=== PATIENT | female | born 1980 | race Caucasian/White ===

== ENCOUNTER 2017-07-11 06:33 | Day surgery (SDC) | payer BC ==
[2017-07-11] VITALS (8 sets, daily range): BP systolic 111–124; BP diastolic 51–89
[~2017-07-11] VITALS: Ht 170.2 cm; Wt 71.2 kg
[~2017-07-11 06:33] MED LIST: ALBU17IN INH; ATIV1TAB10 PO
[2017-07-11] MEDS ORDERED: LR 1,000 ML IV SCH ×2 (06:45→10:45)
[2017-07-11 07:04] LABS: MEAN CORPUSCULAR HEMOGLOBIN 31.4 pg (27.0-33.0); MEAN CORPUSCULAR VOLUME 89.7 fl (80.0-96.0); RED CELL DISTRIBUTION WIDTH 11.9 % (11.5-14.5); WHITE BLOOD COUNT 4.7 K/mm3 (4.0-10.0)
[2017-07-11] MEDS ORDERED: EMER1PAK30 PO (07:20)
[2017-07-11] MEDS ORDERED: ZYRT10CA PO (07:20)
[2017-07-11 07:34] LABS: CONTROL LINE UCG INT CTR LINE PRESENT
[2017-07-11] MEDS ORDERED: MIDAZOLAM INJ 2 MG/2 ML VIAL (J2250) As Ordered ONE (09:05)
[2017-07-11] MEDS ORDERED: fentaNYL 100 MCG/2 ML INJECTION (J3010) As Ordered ONE (09:05)
[2017-07-11] MEDS ORDERED: NEOSTIGMINE 1MG/ML 5 ML SYRINGE (J2710) As Ordered ONE (09:06)
[2017-07-11] MEDS ORDERED: KETOROLAC 60 MG/2 ML VIAL (J1885) As Ordered ONE (09:06)
[2017-07-11] MEDS ORDERED: ONDANSETRON 4MG/2ML VIAL (J2405) As Ordered ONE (09:06)
[2017-07-11] MEDS ORDERED: LIDOCAINE 2% INJ 100 MG/5 ML SDV (FOR ANES.) As Ordered ONE (09:06)
[2017-07-11] MEDS ORDERED: GLYCOPYRROLATE INJ 0.2 MG/ML 2 ML VIAL As Ordered ONE (09:06)
[2017-07-11] MEDS ORDERED: PROPOFOL 200 MG/20 ML VIAL As Ordered ONE (09:06)
[2017-07-11] MEDS ORDERED: dexameTHASONE 4 MG/ML 1ML VIAL (J1100) As Ordered ONE (09:06)
[2017-07-11] MEDS ORDERED: HYDROmorphone HCL 2 MG/ML 1ML VIAL (J1170) As Ordered ONE (09:07)
[2017-07-11] MEDS ORDERED: MORPHINE 10 MG/ML 1ML VIAL As Ordered ONE (10:31)
[2017-07-11] MEDS ORDERED: METOCLOPRAMIDE INJ 10MG/2ML VIAL (J2765) As Ordered ONE (10:31)
[2017-07-11] MEDS ORDERED: MORPHINE 1MG/ML IN 0.9% NACL 100ML IV BAG As Ordered ONE (10:35)
[2017-07-11] MEDS: MORPHINE 2 MG/ML 1ML SYRINGE IV PRN ×3 (10:38→10:49)
[2017-07-11] MEDS ORDERED: METOCLOPRAMIDE INJ 10MG/2ML VIAL (J2765) IV PRN (10:45)
[2017-07-11] MEDS ORDERED: ONDANSETRON 4MG/2ML VIAL (J2405) IV PRN (10:45)
[2017-07-11] MEDS ORDERED: PERCOCET 5MG/325MG TAB PO PRN (10:45)
[2017-07-11] MEDS ORDERED: fentaNYL 100 MCG/2 ML INJECTION (J3010) IV PRN (10:45)
[2017-07-11] MEDS ORDERED: IBUPROFEN 600 MG TAB PO PRN (10:45)
[2017-07-11] MEDS ORDERED: MORPHINE 1MG/ML IN 0.9% NACL 100ML IV BAG IV PRN (11:00)
[2017-07-11] MEDS ORDERED: NALBUPHINE HCL 10 MG/ML AMP (J2300) IV PRN (11:00)
[2017-07-11] MEDS ORDERED: NALOXONE INJ 0.4 MG/1 ML VIAL (J2310) IV PRN (11:00)
[2017-07-11] MEDS ORDERED: diphenhydrAMINE INJ 50MG/ML VIAL (J1200) IV PRN (11:00)
[2017-07-11] MEDS ORDERED: EPIDURAL/PCA KEYS XX PRN (11:00)
--- NOTE | 2017-07-11 11:10 | RO ---
DATE OF PROCEDURE: 07/11/2017 PREPROCEDURE DIAGNOSIS: Dysmenorrhea, menorrhagia. POSTPROCEDURE DIAGNOSIS: Dysmenorrhea, menorrhagia. PROCEDURE: Total vaginal hysterectomy, bilateral salpingectomy. The patient retained her ovaries. SURGEON: Dr. Josette Gonzales HEALTH CARE SPECIALIST: Armida Kendrick. ANESTHESIA: General endotracheal anesthesia. DESCRIPTION OF PROCEDURE: Barbara was brought to the operating room where sufficient general endotracheal anesthesia was induced and she was prepped, draped and positioned in the usual sterile fashion. In the office, we had consented her for laparoscopic assisted vaginal hysterectomy with salpingectomy, possible vaginal hysterectomy with exam under anesthesia confirmed that was a potential option. So when exam under anesthesia was done, and as suspected, was possible, once the patient was anesthetized, and no longer in as much pain as she had been while awake and as much tension as she had been while awake, it was possible to do a vaginal hysterectomy. So as she had been consented, we converted the plan to total vaginal hysterectomy. As such, the bladder was emptied. The weighted speculum was placed. The single tooth tenacula were placed in the anterior and posterior cervix and a circumferential incision was made around the base of the cervix with the cardinal ligaments isolated, clamped, transected and ligated using the de Yen clamps and 0 Vicryl which was used throughout. The uterosacral ligaments were the clamped, transected and ligated with the tissues marked for later re-securing to the cuff. The posterior reflection of the peritoneum entered and the Eugenia retractor placed. Attention was then turned anteriorly where the bladder was dissected away. The bladder flap created and retracted away. Then the uterine vasculature was carefully clamped, transected and ligated along the lateral aspects of the uterus until the uterus could be delivered. I the went back for the tubes. Using Kathy clamps, and again the de Yen clamps for the pedicles, we were able to gently pull the tubes down, clamped the pedicle, ligate that with 0 Vicryl and remove first the left than the right tubes. She had some small paratubal cysts. These actually ruptured in the dissection but there were no significant-looking cysts. The ovaries were able to be visually and manually examined and were normal both to visual inspection and palpation. The pedicles were then visualized. Sponge on a stick facilitated this and good hemostasis was confirmed. The angle stitches of 0 Vicryl to start to close the cuff. The uterosacrals were, of course incorporated in closure and 0 Vicryl was used for a running locked stitch to close the cuff at the apex of the vagina. Once the closure was completed, the procedure was ended. Estimated blood loss for the procedure about 200 mL. Fluid replacement was crystalloid. Complications: None. CONDITION AND DISPOSITION: Barbara tolerated the procedure well and was recoverying in the recovery room in good condition.
[2017-07-11] MEDS: LR 1,000 ML IV SCH ×2 (15:14→21:57)
[2017-07-12] VITALS: BP 113/61
[2017-07-12 04:00] VITALS: BP 120/63
[2017-07-12] MEDS ORDERED: NORCO, ANEXSIA 5/325MG TABLET (HYDROcodone/ACETAMINOPHEN) PO PRN (06:00)
[2017-07-12 08:00] VITALS: BP 104/62
[2017-07-12 08:05] LABS: MEAN CORPUSCULAR HEMOGLOBIN 32.2 pg (27.0-33.0); MEAN CORPUSCULAR HGB CONC 35.8 g/dl (32.0-36.5); WHITE BLOOD COUNT 7.4 K/mm3 (4.0-10.0)
== END 2017-07-12 09:40 | disposition home or self-care (01) ==
LOC: M SDC 06:33 → M PED 11:52 → M SDC 07-12 09:40
PROVIDERS: ATTEND Obstetrics & Gynecology
DX: N94.6 Dysmenorrhea, unspecified (principal); N92.0 Excessive and frequent menstruation with regular cycle; J45.909 Unspecified asthma, uncomplicated; G43.909 Migraine, unspecified, not intractable, without status migrainosus; F41.9 Anxiety disorder, unspecified; J30.9 Allergic rhinitis, unspecified
CPT/HCPCS: 36415; 58291; 84703; 85027; 86850; 86900; 86901; 88307; 96374; 96375; J0690; J1100; J1170; J1885; J2250; J2405; J2710; J2765; J3010

== ENCOUNTER → 2024-03-20 | Outpatient (REF) | payer BC ==
[~2024-03-20] MED LIST changes: +EMER1PAK30 PO; +ZYRT10CA PO
[2024-03-20 17:32] LABS: TOTAL PROTEIN,RANDOM URINE 7.5 MG/DL (0.0-14.0)
[2024-03-20 17:36] LABS: CREATININE,RANDOM URINE 101.9 MG/DL
[2024-03-20 17:43] LABS: BASO % 0.8 % (0.0-1.0); EOS # 0.2 10^3/uL (0.0-0.5); EOS % 3.2 % (0.0-3.0); HEMATOCRIT 43.1 % (36.0-47.0); HEMOGLOBIN 14.1 g/dl (12.0-15.5); LYMPH # 1.9 10^3/uL (1.5-5.0); LYMPH % 35.8 % (24.0-44.0); MEAN CORPUSCULAR HEMOGLOBIN 30.9 pg (27.0-33.0); MEAN CORPUSCULAR HGB CONC 32.7 g/dl (32.0-36.5); MEAN CORPUSCULAR VOLUME 94.3 fl (80.0-96.0); MONO # 0.3 10^3/uL (0.0-0.8); MONO % 6.3 % (2.0-8.0); NEUTROPHILS # 2.8 10^3/uL (1.5-8.5); NEUTROPHILS % 53.7 % (36.0-66.0); PLATELET COUNT, AUTOMATED 204 10^3/uL (150-450); RED BLOOD COUNT 4.57 10^6/uL (4.00-5.40); WHITE BLOOD COUNT 5.3 10^3/uL (4.0-10.0)
[2024-03-20 17:44] LABS: AMORPHOUS SEDIMENT SMALL (NEGATIVE); APPEARANCE, URINE HAZY (CLEAR); BACTERIA, URINE AUTO NEGATIVE (NEGATIVE); BILIRUBIN, URINE AUTO NEGATIVE (NEGATIVE); BLOOD, URINE BLOOD NEGATIVE (NEGATIVE); COLOR, URINE YELLOW (YELLOW); GLUCOSE, URINE (UA) AUTO NEGATIVE (NEGATIVE); KETONE, URINE AUTO NEGATIVE (NEGATIVE); LEUKOCYTE ESTERASE, URINE AUTO NEGATIVE (NEGATIVE); MUCUS, URINE SMALL (NEGATIVE); NITRITE, URINE AUTO NEGATIVE (NEGATIVE); PROTEIN, URINE AUTO NEGATIVE (NEGATIVE); RBC, URINE AUTO 1 /HPF (0-3); SPECIFIC GRAVITY URINE AUTO 1.019 (1.002-1.035); SQUAMOUS EPITHELIAL CELL UR AU 0 /HPF (0-6); UROBILINOGEN, URINE AUTO 0.2 mg/dL (0.0-2.0); WBC, URINE AUTO 1 /HPF (0-3)
[2024-03-20 17:51] LABS: ERYTHROCYTE SEDIMENTATION RATE 7 mm/hr (0-20)
[2024-03-20 18:02] LABS: C REACTIVE PROTEIN QUANTITATIV < 0.40 MG/DL (<1.0)
[2024-03-20 18:03] LABS: COMPLEMENT C3 119.4 MG/DL (90.0-170.0); CPK CREATINE PHOSPHOKINASE 74 U/L (34-145); IRON (FE) 65 UG/DL (50-170); PHOSPHORUS LEVEL 4.1 MG/DL (2.5-4.9)
[2024-03-20 18:04] LABS: PERCENT SATURATION 22.3 % (13.2-45.0); TOTAL IRON BINDING CAPACITY 292 UG/DL (250-425)
[2024-03-20 18:07] LABS: FOLATE 14.26 NG/ML (>5.4); TOTAL 25(OH) VITAMIN D 29.2 NG/ML (20.0-100.0); VITAMIN B12 LEVEL 414 PG/ML (211-911)
== END ==
LOC: M SFHCRHEU 14:18
PROVIDERS: ATTEND Internal Medicine
DX: R76.8 Other specified abnormal immunological findings in serum (principal); R53.83 Other fatigue; M79.10 Myalgia, unspecified site

== ENCOUNTER → 2024-04-17 | Outpatient (CLI) | payer BC ==
[2024-04-17 15:09] LABS: THYROXINE (T4) 10.1 UG/DL (4.5-10.9)
[2024-04-17 15:10] LABS: THYROID STIMULATING HORMONE 1.445 uIU/ML (0.55-4.78)
[2024-04-17 15:38] LABS: FREE THYROXINE INDEX 4.2 % (1.3-4.8); T UPTAKE 41.9 % (22.5-37.0)
== END ==
LOC: M LAB 11:34
PROVIDERS: ATTEND Psychiatry & Neurology Neurology
DX: E07.9 Disorder of thyroid, unspecified (principal)

== ENCOUNTER → 2024-04-17 | Outpatient (REF) | LOC: M LAB 03-02 11:38 | PROVIDERS: ATTEND Family Medicine | DX: Z02.89 Encounter for other administrative examinations (principal) ==

== ENCOUNTER → 2024-04-17 | Outpatient (CLI) | payer BC | LOC: M SLEEP HO 11:27 | PROVIDERS: ATTEND Internal Medicine | DX: R53.83 Other fatigue (principal) ==

== ENCOUNTER → 2024-09-02 | Outpatient (REF) | LOC: M EMP 07:48 | PROVIDERS: ATTEND Family Medicine | DX: Z11.52 Encounter for screening for COVID-19 (principal) ==

== ENCOUNTER → 2024-09-11 | Outpatient (REF) | payer BC | LOC: M SFHCRHEU 10:58 | PROVIDERS: ATTEND Internal Medicine | DX: E55.9 Vitamin D deficiency, unspecified (principal) ==

== ENCOUNTER 2024-12-23 19:20 | Emergency (ER) | payer BC ==
[~2024-12-23] VITALS: Ht 170.2 cm; Wt 80.0 kg
[2024-12-23 19:25] VITALS: TEMP 98.3
[2024-12-23 20:41] LABS: BASO # 0.1 10^3/uL (0.0-0.2); BASO % 0.8 % (0.0-1.0); EOS # 0.1 10^3/uL (0.0-0.5); EOS % 1.9 % (0.0-3.0); HEMATOCRIT 42.5 % (36.0-47.0); HEMOGLOBIN 14.7 g/dl (12.0-15.5); LYMPH # 2.2 10^3/uL (1.5-5.0); LYMPH % 34.8 % (24.0-44.0); MEAN CORPUSCULAR HEMOGLOBIN 31.6 pg (27.0-33.0); MEAN CORPUSCULAR HGB CONC 34.6 g/dl (32.0-36.5); MEAN CORPUSCULAR VOLUME 91.4 fl (80.0-96.0); MONO # 0.4 10^3/uL (0.0-0.8); MONO % 6.1 % (2.0-8.0); NEUTROPHILS # 3.6 10^3/uL (1.5-8.5); NEUTROPHILS % 56.2 % (36.0-66.0); PLATELET COUNT, AUTOMATED 196 10^3/uL (150-450); RED BLOOD COUNT 4.65 10^6/uL (4.00-5.40); WHITE BLOOD COUNT 6.4 10^3/uL (4.0-10.0)
[2024-12-23 21:01] LABS: INR 0.99; PARTIAL THROMBOPLASTIN TIME 30.4 SECONDS (24.8-34.2); PROTHROMBIN TIME 13.4 SECONDS (12.5-14.5)
[2024-12-23] MEDS ORDERED: ISOVUE-370 76% 100ML VIAL As Ordered ONE (21:33)
[2024-12-23] MEDS: ACETAMINOPHEN *IV* 1,000 MG in IV 1 EA IV ONE (22:14)
[2024-12-23] MEDS: KETOROLAC 30 MG/ML 1ML VIAL IV ONE (22:14)
[2024-12-23] MEDS: MAG SULF 1GM/100ML (MAG RUN) 1 GM in IV 1 EA IV ONE (22:31)
[2024-12-23 23:30] VITALS: BP 103/66
[2024-12-23 23:50] VITALS: O2SAT 99
== END 2024-12-24 00:06 | disposition home or self-care (01) ==
LOC: M ED 19:20
DX: R42 Dizziness and giddiness (principal); R51.9 Headache, unspecified; J45.909 Unspecified asthma, uncomplicated; Z79.899 Other long term (current) drug therapy
CPT/HCPCS: 70450; 70496; 70498; 71045; 80047; 85025; 85610; 85730; 86850; 86900; 86901; 93005; 96365; 96366; 96368; 96375; 99285; J0131; J1885; J3475; Q9967